=== PATIENT | male | born 1975 | race African-American/Black ===

== ENCOUNTER → 2024-06-06 | Day surgery (SDC) | payer BC ==
[~2024-06-06] MED LIST: AMLODIPINE BESYL5 MG PO; GLYCOPYRROLATE INJ 0.2 MG/ML VIAL ONE; HYOSCYAMINE SULFATE 0.5 MG/ML INJ ONE; LIDOCAINE HCL 2% LOCAL INJ 5 ML SDV VIAL INJ ONE; PROPOFOL IV EMULSION 10 MG/ML 20 ML VIAL ONE; PROPOFOL IV EMULSION 50 ML IV ONE
[2024-06-06] MEDS: LACTATED RINGER'S 1,000 ML ONE (08:12)
[2024-06-06 10:12] VITALS: TEMP 97.4
[2024-06-06 10:32] VITALS: BP 110/86; PULSE 98; RESP 18; O2SAT 99
== END | disposition home or self-care (01) ==
LOC: OR 07:38
PROVIDERS: ATTEND Internal Medicine Gastroenterology
DX: Z12.11 Encounter for screening for malignant neoplasm of colon (principal); D12.4 Benign neoplasm of descending colon; D12.5 Benign neoplasm of sigmoid colon; K64.8 Other hemorrhoids; Z71.3 Dietary counseling and surveillance; I10 Essential (primary) hypertension; Z71.89 Other specified counseling; Z01.810 Encounter for preprocedural cardiovascular examination; Z79.899 Other long term (current) drug therapy; Z68.32 Body mass index [BMI] 32.0-32.9, adult; Z80.0 Family history of malignant neoplasm of digestive organs
CPT/HCPCS: 45385; 93005; J1980; J2003; J2704 ×2; J7121; 45378